=== PATIENT | female | born 1945 | race Caucasian/White ===

== ENCOUNTER → 2019-06-03 | Outpatient (CLI) | payer MEDICARE ==
--- NOTE | 2019-06-03 11:11 | XR ---
EXAMINATION TYPE: XR thoracic spine 2V DATE OF EXAM: 06/03/2019 CLINICAL HISTORY: pain TECHNIQUE: Frontal, lateral, and swimmer's view of thoracic spine are obtained. COMPARISON: None. FINDINGS: Thoracic spine show satisfactory alignment without evidence of acute fracture or dislocatio n. Scoliosis thoracolumbar junction convex to the right. Vertebral body heights are preserved. Mild-t o-moderate degenerative disc space narrowing. Visualized ribs are unremarkable. IMPRESSION: No acute fracture or dislocation is seen in the thoracic spine. ICD 10 NO FRACTURE, INIT IAL EVALUATION
--- NOTE | 2019-06-03 11:21 | XR ---
EXAMINATION TYPE: XR lumbar spine 1V DATE OF EXAM: 06/03/2019 CLINICAL HISTORY: pain COMPARISON: NONE TECHNIQUE: Single lateral view of the lumbar spine is submitted. FINDINGS: Superior endplate compression fracture of uncertain age and/or etiology involving the L2 ve rtebral segment with estimated loss of height of approximately 30%. No additional compression fractur es seen. Grade 1 anterolisthesis L4 and L5 measuring 7.4 mm and grade 1 anterolisthesis L5 on S1 6 m m. Moderate to severe multilevel degenerative disc space narrowing. IMPRESSION: 1.Superior endplate compression fracture of uncertain age and/or etiology involving the L2 vertebral segment with estimated loss of height of approximately 30%. 2. Degenerative changes as noted.
== END | disposition home or self-care (01) ==
LOC: RADXRMAIN 10:29
PROVIDERS: ATTEND Nurse Practitioner Family
DX: M47.26 Other spondylosis with radiculopathy, lumbar region (principal); M48.56XA Collapsed vertebra, not elsewhere classified, lumbar region, initial encounter for fracture; G89.29 Other chronic pain; M54.42 Lumbago with sciatica, left side; M54.41 Lumbago with sciatica, right side
CPT/HCPCS: 72020; 72070

== ENCOUNTER → 2019-09-11 | Outpatient (CLI) | payer MEDICARE ==
--- NOTE | 2019-09-11 11:12 | XR ---
EXAMINATION TYPE: XR lumbar spine 2 or 3V DATE OF EXAM: 09/11/2019 CLINICAL HISTORY: Back pain TECHNIQUE: Frontal and lateral images of the lumbar spine are obtained. COMPARISON: Lumbar spine x-rays dated 06/03/2019 FINDINGS: There is redemonstration of the compression deformity of L2 with height loss that has progr essed now approximately 40% and previously 30%. There is also redemonstration of grade 1 anterolisthe sis of L4 on L5 and L5 on S1. Overall degree of anterolisthesis is unchanged. Multilevel facet arthr opathy, intervertebral disc space narrowing, and small interosseous heights are seen. Diffuse osseous demineralization is present. There is a very mild levoscoliosis of the mid lumbar spine. Postsurgica l change of the lower lumbar spine. Mild atherosclerosis of the abdominal aorta. No dilated overlying bowel. IMPRESSION: 1. Degree of vertebral body collapse of the known compression deformity of L2 has progressed from the prior. 2. Diffuse osseous demineralization, extensive degenerative changes of the lumbar spine, and stable g rade 1 anterolisthesis of L4 on L5 and L5 on S1.
--- NOTE | 2019-09-11 11:44 | XR ---
EXAMINATION TYPE: XR thoracic spine 2V DATE OF EXAM: 09/11/2019 CLINICAL HISTORY: Back pain TECHNIQUE: Frontal, lateral, and swimmer's view of thoracic spine are obtained. COMPARISON: 06/03/2019 FINDINGS: There is mild dextroscoliosis of the thoracolumbar junction. Diffuse osseous demineralizati on is present. Thoracic spine show satisfactory alignment without evidence of acute fracture or dislo cation. There is a stable upper thoracic compression deformity that is mild. This is estimated at T4 and marked on the image. Remaining vertebral body heights are preserved with mild multilevel degenera tive disc disease of the spine noted as well as multiple anterior osteophytes. Visualized ribs are un remarkable. IMPRESSION: 1. No acute fracture or malalignment is seen in the thoracic spine. 2. Stable mild compression deformity of approximately T4. 3. Diffuse osseous demineralization, mild dextro scoliosis of the thoracolumbar junction, and mild mu ltilevel degenerative disc disease of the thoracic spine.
== END | disposition home or self-care (01) ==
LOC: RADXRMAIN 10:26
PROVIDERS: ATTEND Nurse Practitioner Family
DX: M51.34 Other intervertebral disc degeneration, thoracic region (principal); M53.84 Other specified dorsopathies, thoracic region; M41.85 Other forms of scoliosis, thoracolumbar region; M81.8 Other osteoporosis without current pathological fracture; M43.16 Spondylolisthesis, lumbar region; M43.17 Spondylolisthesis, lumbosacral region; M47.816 Spondylosis without myelopathy or radiculopathy, lumbar region; M47.817 Spondylosis without myelopathy or radiculopathy, lumbosacral region; M53.86 Other specified dorsopathies, lumbar region; M48.56XA Collapsed vertebra, not elsewhere classified, lumbar region, initial encounter for fracture
CPT/HCPCS: 72070; 72100